=== PATIENT | male | born 1970 | race Caucasian/White ===

== ENCOUNTER → 2022-03-02 | Day surgery (SDC) | payer BC ==
[~2022-03-02] VITALS: Ht 175.2 cm; Wt 124.7 kg
[~2022-03-02] MED LIST: AMLODIPINE BESY10 MG PO; DICLOFENAC SOD75 MG PO; DOXAZOSIN2 MG PO; GLUMETZA500 MG PO; IBUPROFEN600 MG PO; LOSARTAN POTASS50 M1 PO; NKHM; OMEPRAZOLE40 MG PO; VICODIN 5/500 505 MG PO
[2022-03-02 09:15] VITALS: BP 129/73
[2022-03-02 10:33] VITALS: BP 96/48
[2022-03-02 10:48] VITALS: BP 107/59
[2022-03-02 11:01] VITALS: BP 117/67
== END | disposition home or self-care (01) ==
LOC: SDC 02-27 12:30
PROVIDERS: ATTEND Surgery
DX: Z12.11 Encounter for screening for malignant neoplasm of colon (principal); K62.1 Rectal polyp; K63.5 Polyp of colon; I10 Essential (primary) hypertension; K21.9 Gastro-esophageal reflux disease without esophagitis; M19.90 Unspecified osteoarthritis, unspecified site; E11.9 Type 2 diabetes mellitus without complications; Z79.899 Other long term (current) drug therapy

== ENCOUNTER → 2022-04-25 | Outpatient (CLI) | payer BC | END | disposition home or self-care (01) | LOC: US 07:13 | PROVIDERS: ATTEND Physician Assistant | DX: R74.8 Abnormal levels of other serum enzymes (principal); K76.0 Fatty (change of) liver, not elsewhere classified; R16.0 Hepatomegaly, not elsewhere classified ==

== ENCOUNTER 2023-05-12 13:56 | Emergency (ER) | payer BC ==
[~2023-05-12] VITALS: Ht 175.2 cm; Wt 122.5 kg
[2023-05-12] MEDS ORDERED: MOUNJARO10 MG/0.1 SQ (14:12)
[2023-05-12] MEDS ORDERED: PAXLOVID 300-11 EAC3 PO (15:09)
== END 2023-05-12 18:19 | disposition home or self-care (01) ==
LOC: ED 13:56
DX: U07.1 COVID-19 (principal); Z79.899 Other long term (current) drug therapy; Z90.49 Acquired absence of other specified parts of digestive tract

== ENCOUNTER → 2023-12-26 | Outpatient (CLI) | payer BC ==
[~2023-12-26] MED LIST changes: +IOHEXOL 300 MG/ML 100 ML VIAL IV ONE; +MOUNJARO10 MG/0.1 SQ; +PAXLOVID 300-11 EAC3 PO
== END | disposition home or self-care (01) ==
LOC: CARD 08:29
PROVIDERS: ATTEND Physician Assistant
DX: I71.21 Aneurysm of the ascending aorta, without rupture (principal); R93.89 Abnormal findings on diagnostic imaging of other specified body structures; I51.7 Cardiomegaly

== ENCOUNTER → 2024-03-28 | Outpatient (CLI) | payer BC ==
[~2024-03-28] MED LIST changes: -IOHEXOL 300 MG/ML 100 ML VIAL IV ONE
== END | disposition home or self-care (01) ==
LOC: US 03-18 09:00
PROVIDERS: ATTEND Internal Medicine Cardiovascular Disease
DX: I71.21 Aneurysm of the ascending aorta, without rupture (principal); E11.9 Type 2 diabetes mellitus without complications; I10 Essential (primary) hypertension; E78.5 Hyperlipidemia, unspecified